=== PATIENT | male | born 1985 | race Two or more races ===

== ENCOUNTER 2016-02-23 08:51 | Emergency (ER) | payer MEDICAID ==
--- NOTE | 2016-02-23 09:10 | UCPHY ---
H & P Time Seen by Provider: 02/23/16 08:53 Patient Type: Established HPI/ROS: 30-year-old male presents complaining of cold x2 weeks duration with nasal congestion and cough. Frustrated because of the long duration of his illness. He states approximately 2 or 3 days ago he had a fever up to 102. Review of systems As per HPI-cold symptoms General no fever no chills no weakness HEENT no eye pain no eye discharge. No eye redness, no sore throat Respiratory positive cough, no shortness of breath Cardiac no chest pain, no peripheral edema GI no abdominal pain, no diarrhea, no constipation, no nausea, no vomiting no flank pain, no hematuria, no dysuria Musculoskeletal no myalgias, no joint pain Heme no easy bruising, no easy bleeding Endo no polyuria, no polydipsia Skin no rashes, no pruritus Neuro no syncope, no dizziness, no headaches Psych is no suicidal ideation, no homicidal ideation Past Medical/Surgical History: None Social History: Denies alcohol or drug use Smoking Status: Never smoked Physical Exam: 30-year-old male Alert and oriented nontoxic appearance, no acute distress afebrile Atraumatic normocephalic Extraocular muscles intact, anicteric Nares mild yellowish discharge Oropharynx mild erythema no tonsillar swelling no exudate no uvular deviation, tolerating own secretions Neck supple no lymphadenopathy Lungs clear to auscultation bilaterally Heart regular rate and rhythm Abdomen normoactive bowel sounds soft nontender Extremities no cyanosis clubbing or edema Skin no rash Constitutional: Initial Vital Signs Temperature (C) 36.9 C 02/23/16 09:09 Heart Rate 94 02/23/16 09:09 Respiratory Rate 16 02/23/16 09:09 Blood Pressure 130/88 H 02/23/16 09:09 O2 Sat (%) 95 02/23/16 09:09 O2 Delivery Mode Room Air Allergies/Adverse Reactions: No Known Allergies Allergy (Verified 02/23/16 09:09) Home Medications: Medication Instructions Recorded AZITHROMYCIN [Z-PACK] 250 mg PO DAILY #6 tab 02/23/16 Medical Decision Making - Diagnostics Imaging: Chest x-ray Negative ED Course/Re-evaluation: Patient seen and evaluated for prolonged cold symptoms and cough Physical exam significant for clear nasal discharge, nasal turbinates swelling and scattered rhonchi Impression Bronchitis Sinusitis Plan [facility] Cold medicine, [id number] Fluticasone Follow-up PCP if not improving Departure - Departure Disposition: Home, Routine, Self-Care Clinical Impression: Bronchitis, Sinusitis Condition: Good Instructions: Acute Bronchitis (ED), Sinusitis (ED) Additional Instructions: I am giving you a prescription for an antibiotic called azithromycin, you take 2 today and 1 each day for the next 4 days. For your cold symptoms I would suggest using a day time nasal decongestant or daytime cough and cold multi symptom medicine that you may purchase over the counter. Additionally, the medicine fluticasone also called Flonase can help decrease nasal swelling, 1 spray each nostril twice a day for the next 3-4 days. Referrals: Alonso Gross MD [Primary Care Provider] - As per Instructions Stand Alone Forms: Work Excuse Prescriptions: AZITHROMYCIN [Z-PACK] 250 mg PO DAILY #6 tab - PQRS PQRS Measurement: Not applicable
[2016-02-23 09:11] VITALS: BP 130/88; PULSE 94; RESP 16; TEMP 98.4; O2SAT 95
--- NOTE | 2016-02-23 09:52 | DX ---
PA and Lateral Chest February 23, 2016 Clinical Indications: Cough and congestion. Findings: The lungs are clear, and no masses are found. The heart and pulmonary vessels are normal. There are no pleural effusions and no pneumothorax. The bones are unremarkable for this age. Impression: No acute cardiopulmonary process.
== END 2016-02-23 10:00 | disposition home or self-care (01) ==
LOC: CED 08:51
DX: J40 Bronchitis, not specified as acute or chronic (principal); J32.9 Chronic sinusitis, unspecified
CPT/HCPCS: 71020-PO; 99215-PO; G0463-PO